=== PATIENT | male | born 1990 | race African-American/Black ===

== ENCOUNTER 2022-01-26 17:13 | Emergency (ER) | payer MEDICAID, OTHER ==
[~2022-01-26] VITALS: Ht 167.6 cm; Wt 59.0 kg
[2022-01-26 17:18] VITALS: BP 121/79
[2022-01-26] MEDS ORDERED: MAGNESIUM/ALUMINUM HYDROXIDE/SIMETHICONE 30ML UDC PO ONE (19:15)
[2022-01-26] MEDS ORDERED: VISCOUS LIDOCAINE 2% 15 ML UDC PO ONE (19:15)
[2022-01-26] MEDS ORDERED: VISCOUS LIDOCAINE 2% 15 ML UDC PO SCH (22:45)
[2022-01-26] MEDS ORDERED: MAGNESIUM/ALUMINUM HYDROXIDE/SIMETHICONE 30ML UDC PO SCH (22:45)
== END 2022-01-26 23:34 | disposition left against medical advice (07) ==
LOC: ER 17:13
DX: Z53.21 Procedure and treatment not carried out due to patient leaving prior to being seen by health care provider (principal)
CPT/HCPCS: 93005